=== PATIENT | female | born 1955 | race Hispanic/Latino ===

== ENCOUNTER 2023-11-05 05:33 | Observation (INO) | payer MEDICARE ==
[2023-11-02 12:15] LABS: BASOPHILS # (AUTO) 0.1 (0.0-0.1); BASOPHILS % 0.8 % (0.0-1.0); EOSINOPHILS # (AUTO) 0.2 (0.0-0.4); EOSINOPHILS % 1.9 % (0.0-6.0); HEMATOCRIT 44.4 % (34.2-44.1); HEMOGLOBIN 14.3 g/dL (12.0-16.0); LYMPHOCYTES # (AUTO) 2.3 (1.0-3.2); MEAN CORPUSCULAR HEMOGLOBIN 30.7 pg (28-32); MEAN CORPUSCULAR HGB CONC 32.2 g/dL (31-35); MEAN CORPUSCULAR VOLUME 95.3 fL (81-99); MONOCYTES # (AUTO) 0.6 (0.2-0.8); MONOCYTES % 7.7 % (4.4-11.3); NEUTROPHILS # (AUTO) 4.6 (2.1-6.9); NEUTROPHILS % 59.3 % (38.7-80.0); PLATELET COUNT 288 x10e3/uL (140-360); RED BLOOD COUNT 4.66 x10e6/uL (3.6-5.1); RED CELL DISTRIBUTION WIDTH 12.5 % (11.7-14.4)
[2023-11-02 12:45] LABS: INR 0.84; PROTHROMBIN TIME 11.9 seconds (11.9-14.5)
[2023-11-02 12:46] LABS: PARTIAL THROMBOPLASTIN TIME 27.4 seconds (23.8-35.5)
[2023-11-02 12:51] LABS: ANION GAP 12.4 mmol/L (8-16); CALCIUM 8.9 mg/dL (8.4-10.2); CREATININE, SERUM 0.79 mg/dL (0.57-1.11); POTASSIUM 4.4 mmol/L (3.5-5.1)
[~2023-11-05] VITALS: Ht 167.6 cm; Wt 76.2 kg
[~2023-11-05 05:33] MED LIST: LEVOTHYROXINE50 MCG PO; LOSARTAN POTASS25 MG PO
[2023-11-05] MEDS: SODIUM CHLORIDE 0.9% 250ML 250 ML ONE (05:49)
[2023-11-05] MEDS: LACTATED RINGER'S 1,000 ML ONE (05:49)
[2023-11-05] MEDS: Vancomycin IV 1 GM VIAL ONE (05:50)
[2023-11-05] MEDS ORDERED: Vancomycin IV 1 GM VIAL ONE (07:17)
[2023-11-05] MEDS ORDERED: LIDOCAINE 1% W/EPINEPHRINE 20 ML VIAL ONE (07:17)
[2023-11-05] MEDS ORDERED: THROMBIN FOR SOLN 5,000 UNIT VIAL ONE (07:17)
[2023-11-05] MEDS ORDERED: MAGNESIUM/ALUMINUM/SIMETHICONE 30 ML UDC PO PRN (09:00)
[2023-11-05] MEDS ORDERED: ZOLPIDEM TARTRATE 5 MG TAB PO PRN (09:00)
[2023-11-05] MEDS ORDERED: PROMETHAZINE HCL (IM) 25 MG/ML VIAL IM PRN (09:00)
[2023-11-05] MEDS ORDERED: MORPHINE SULFATE 5 MG/ML VIAL IM PRN (09:00)
[2023-11-05] MEDS ORDERED: HYDROMORPHONE 2MG/ML IV PRN (09:00)
[2023-11-05] MEDS ORDERED: ACETAMINOPHEN 325 MG TAB PO PRN (09:00)
[2023-11-05] MEDS ORDERED: ONDANSETRON HCL INJ 2MG/ML 2ML 2 MG/ML VIAL IV PRN (09:00)
[2023-11-05] MEDS ORDERED: CEPACOL SORE THROAT LOZENGES PO PRN (09:00)
[2023-11-05] MEDS ORDERED: HYDROCODON-ACE1 EA12 PO (09:05)
[2023-11-05] MEDS: FENTANYL CITRATE/PF 100MCG/2 ML INJ ONE (09:40)
[2023-11-05] MEDS: OXYCODONE/ACETAMINOPHEN 5-325 1 EACH TABLET PO PRN (10:30)
[2023-11-05] MEDS: CARISOPRODOL 350 MG TAB PO PRN (10:30)
[2023-11-05] MEDS: LACTATED RINGER'S 1,000 ML IV SCH (11:32)
[2023-11-05 11:45] VITALS: BP 155/85; PULSE 51; RESP 16; TEMP 97.6; O2SAT 100
[2023-11-05 11:55] VITALS: BP 155/85; PULSE 51; RESP 16; TEMP 97.6; O2SAT 100
[2023-11-05] MEDS ORDERED: FENTANYL CITRATE/PF 100MCG/2 ML INJ ONE (12:12)
[2023-11-05] MEDS: LOSARTAN POTASSIUM 25 MG TAB PO SCH (12:42)
[2023-11-05] MEDS ORDERED: PROPOFOL IV EMULSION 10 MG/ML 20 ML VIAL ONE (12:50)
[2023-11-05] MEDS ORDERED: DEXMEDETOMIDINE HCL 200 MCG/2 ML VIAL ONE (12:50)
[2023-11-05] MEDS ORDERED: FAMOTIDINE 20 MG/2 ML VIAL IV ONE (12:50)
[2023-11-05] MEDS ORDERED: ONDANSETRON HCL INJ 2MG/ML 2ML 2 MG/ML VIAL ONE (12:50)
[2023-11-05] MEDS ORDERED: SEVOFLURANE INHAL SOLN 250 ML PEN BTL ONE (12:50)
[2023-11-05] MEDS ORDERED: KETAMINE 50MG/5ML SYR ONE (12:50)
[2023-11-05] MEDS ORDERED: LIDOCAINE HCL 2% LOCAL INJ 5 ML SDV VIAL INJ ONE (12:50)
[2023-11-05] MEDS ORDERED: ROCURONIUM BROMIDE 10 MG/ML 5ML VIAL IV ONE (12:50)
[2023-11-05] MEDS ORDERED: ACETAMINOPHEN 1000 MG/100 ML IV ONE (12:50)
[2023-11-05] MEDS ORDERED: DEXAMETHASONE SOD PHOS 10 MG/1 ML VIAL ONE (12:50)
[2023-11-05] MEDS ORDERED: SUGAMMADEX SODIUM 200 MG/2 ML VIAL IV ONE (12:50)
[2023-11-05 15:50] VITALS: BP 121/81; PULSE 58; RESP 16; TEMP 97.7; O2SAT 99
[2023-11-05] MEDS: LEVOTHYROXINE SODIUM 100 MCG TAB PO SCH (16:30)
[2023-11-05] MEDS: Vancomycin IV 1 GM in SODIUM CHLORIDE 0.9% 250ML 250 ML IV SCH (17:33)
[2023-11-05 20:00] VITALS: BP 111/75; PULSE 65; RESP 17; TEMP 97.9; O2SAT 97
[2023-11-05 21:00] VITALS: BP 111/75; PULSE 65; RESP 17; TEMP 97.9; O2SAT 97
[2023-11-06] VITALS: BP 117/73; PULSE 57; RESP 17; TEMP 98.1; O2SAT 97
[2023-11-06 04:00] VITALS: BP 109/72; PULSE 56; RESP 17; TEMP 98.3; O2SAT 98
[2023-11-06 08:35] VITALS: BP 122/73; PULSE 65; RESP 16; TEMP 97.9; O2SAT 100
[2023-11-06 09:00] VITALS: BP 122/73; PULSE 65; RESP 16; TEMP 97.9; O2SAT 100
== END 2023-11-06 10:00 | disposition home or self-care (01) ==
LOC: OR 05:33 → PACU V 08:59 → MED/SURG3 10:50
PROVIDERS: ADMIT Neurological Surgery; ATTEND Neurological Surgery
DX: M51.16 Intervertebral disc disorders with radiculopathy, lumbar region (principal); M48.062 Spinal stenosis, lumbar region with neurogenic claudication; I10 Essential (primary) hypertension; E03.9 Hypothyroidism, unspecified; Z87.11 Personal history of peptic ulcer disease
CPT/HCPCS: 36415; 63047; 71046; 72020; 80048; 85025; 85610; 85730; 86850; 86900; 88304; 88311; 93005; G0378 ×2; J0131; J1100; J2001; J2405; J2704; J3010; J3370 ×2; J7050 ×2; J7121